=== PATIENT | male | born 1960 | race Caucasian/White ===

== ENCOUNTER 2018-02-14 00:06 | Emergency (ER) | payer OTHER ==
[~2018-02-14] VITALS: Ht 185.4 cm; Wt 162.7 kg
[2018-02-14 01:04] LABS: HEMATOCRIT 39.8 % (39.0-50.0); HEMOGLOBIN 13.2 g/dl (14.0-18.0); IMMATURE GRANULOCYTES 0.5 % (0.0-1.0); MEAN CELL VOLUME 93.4 fL CALC (80.0-100.0); MEAN CORPUSCULAR HGB CONC 33.2 g/L CALC (32.0-36.0); NEUT# 7.76 thou/uL (1.82-7.42); RED BLOOD COUNT 4.26 mill/uL (4.70-6.10); RED CELL DISTRI WIDTH 14.6 % (11.5-15.5)
[2018-02-14 01:28] LABS: ALBUMIN 3.6 g/dL (3.2-5.0); ALKALINE PHOSPHATASE 61 u/l (38-126); ANION GAP 17 (6-22 (CALC)); BILIRUBIN, TOTAL 0.5 mg/dL (0.0-1.4); BUN 28 mg/dL (9-20); BUN/CREATININE RATIO 25 (12-20 (CALC)); CARBON DIOXIDE 27 mmol/l (22-30); CHLORIDE 102 mmol/l (95-108); CREATININE 1.1 mg/dL (0.7-1.3); GFR > 60 ML/MIN (>=60 (CALC)); GFR FOR AFR.AMER. > 60 ML/MIN (>=60 (CALC)); POTASSIUM 3.6 mmol/l (3.5-5.1); SGOT/AST 27 u/l (17-59); SGPT/ALT 32 u/l (21-72); SODIUM 143 mmol/l (137-146); TOTAL PROTEIN 6.4 g/dL (6.3-8.2)
[2018-02-14 01:33] LABS: PROTHROMBIN TIME 11.3 SECONDS (9.0-12.5)
[2018-02-14 05:00] VITALS: BP 116/76
[2018-02-14 05:54] LABS: URINE BILIRUBIN - DIPSTICK NEGATIVE (NEGATIVE); URINE BLOOD DIPSTICK NEGATIVE (NEGATIVE); URINE COLOR YELLOW; URINE GLUCOSE - DIPSTICK NEGATIVE (NEGATIVE); URINE KETONE 15 mg/dL (NEGATIVE); URINE LEUK ESTERASE NEGATIVE (NEGATIVE); URINE NITRITE - DIPSTICK NEGATIVE (Negative); URINE PH 6.5 (4.5-8.0); URINE PROTEIN - DIPSTICK NEGATIVE (NEG-TRACE); URINE UROBILINOGEN - DIPSTICK 0.2 E.U./dL (0.2)
[2018-02-14 07:12] LABS: URINE CLARITY CLEAR
== END 2018-02-14 05:00 | disposition left against medical advice (07) | DRG 379 ==
LOC: ED 00:06 → ED-I 03:00 → ED 05:00
PROVIDERS: Emergency Medicine
DX: K92.2 Gastrointestinal hemorrhage, unspecified (principal); N20.0 Calculus of kidney; R00.1 Bradycardia, unspecified; Z91.19 Patient's noncompliance with other medical treatment and regimen
CPT/HCPCS: S0164